=== PATIENT | female | born 1955 | race Hispanic/Latino ===

== ENCOUNTER 2023-03-09 09:51 | Emergency (ER) | payer OTHER ==
[~2023-03-09] VITALS: Ht 152.4 cm; Wt 81.6 kg
[2023-03-09] MEDS ORDERED: METH4TAB3 PO (12:36)
[2023-03-09 12:58] VITALS: BP 146/71; PULSE 65; RESP 18; O2SAT 98
[2023-03-09] MEDS ORDERED: KETOROLAC 30MG VIAL (30MG/ML) IM ONE (13:00)
[2023-03-09] MEDS ORDERED: KETOROLAC 60 MG VIAL (30MG/ML) IM ONE (13:00)
== END 2023-03-09 13:54 | disposition home or self-care (01) ==
LOC: EDH 09:51
DX: M25.562 Pain in left knee (principal); M17.12 Unilateral primary osteoarthritis, left knee; E11.9 Type 2 diabetes mellitus without complications; E78.00 Pure hypercholesterolemia, unspecified; I10 Essential (primary) hypertension; Z90.49 Acquired absence of other specified parts of digestive tract
CPT/HCPCS: 99283; 73562; 96372; J1885